=== PATIENT | male | born 1980 | race Caucasian/White ===

== ENCOUNTER 2019-07-18 10:43 | Inpatient (IN) | payer MEDICAID ==
[~2019-07-18] VITALS: Ht 185.4 cm; Wt 123.5 kg
[2019-07-18] MEDS ORDERED: vancomycin/NS 1 GM ADD-VANTAGE 250 ML IV ONE (11:35)
[2019-07-18] MEDS ORDERED: CefTRIAXone 2gm/D5W 50ml 50 ML IV ONE (11:35)
[2019-07-18] MEDS ORDERED: TETanus/Pertussis (Acell)/Diphther VAC/PF (Tdap-Adult) 0.5ml syringe IMVAC ONE (11:40)
[2019-07-18] MEDS ORDERED: iohexol 300mg/ml 100ml inj. ONE (11:48)
[2019-07-18 12:16] LABS: BASOPHILS # (AUTO) 0.1 X10'3 (0-0.2); BASOPHILS % (AUTO) 0.5 % (0-1); EOSINOPHILS # (AUTO) 0.2 X10'3 (0-0.9); EOSINOPHILS % (AUTO) 0.9 % (0-6); HEMATOCRIT 51.2 % (42.0-52.0); HEMOGLOBIN 17.3 g/dl (14.0-17.9); LYMPHOCYTES # (AUTO) 2.7 X10'3 (1.1-4.8); LYMPHOCYTES % (AUTO) 12.6 % (21-51); MEAN CORPUSCULAR HEMOGLOBIN 30.3 PG (27.0-31.0); MEAN CORPUSCULAR HGB CONC 33.8 g/dL (33.0-36.5); MEAN CORPUSCULAR VOLUME 89.4 FL (78-98); MEAN PLATELET VOLUME 8.1 FL (7.4-10.4); MONOCYTES # (AUTO) 1.9 X10'3 (0-0.9); MONOCYTES % (AUTO) 9.2 % (2-12); NEUTROPHILS # (AUTO) 16.3 X10'3 (1.8-7.7); NEUTROPHILS % (AUTO) 76.8 % (42-75); PLATELET COUNT 262 X10'3 (140-440); RED BLOOD COUNT 5.73 X10'6 (4.70-6.10); RED CELL DISTRIBUTION WIDTH 12.7 % (11.5-14.5); WHITE BLOOD COUNT 21.3 X10'3 (4.5-11.0)
--- NOTE | 2019-07-18 12:28 | NUR ---
Pt aware we need a urine sample. Urinal provided at bedside.
[2019-07-18 12:30] LABS: PARTIAL THROMBOPLASTIN TIME 29 SECONDS (22-32)
[2019-07-18 12:37] LABS: ALANINE AMINOTRANSFERASE 24 U/L (12-78); ALBUMIN 3.2 G/DL (3.4-5.0); ALKALINE PHOSPHATASE 81 IU/L (46-116); ANION GAP 4 (8-16); ASPARTATE AMINO TRANSFERASE 16 U/L (10-37); BILIRUBIN,TOTAL 0.8 MG/DL (0.1-1.0); BLOOD UREA NITROGEN 12 MG/DL (7-18); BUN/CREATININE RATIO 15.4 (5.4-32.0); CALCIUM 8.2 MG/DL (8.5-10.1); CHLORIDE 105 MMOL/L (99-107); CREATININE 0.78 MG/DL (0.60-1.10); GLUCOSE 125 MG/DL (70-104); POTASSIUM 3.9 MMOL/L (3.5-5.1); SODIUM 135 MMOL/L (135-145); TOTAL PROTEIN 6.4 G/DL (6.4-8.2); eGFR > 90 ML/MIN
--- NOTE | 2019-07-18 13:25 | NUR ---
Pt sleeping. Respirations unlabored. NAD
[2019-07-18] MEDS ORDERED: NO HOME MEDS (13:55)
[2019-07-18] MEDS ORDERED: metoclopramide 5 mg/ml inj IV PRN (15:20)
[2019-07-18] MEDS ORDERED: mag hydrox/Alum hydrox/simeth 30ml oral suspension PO PRN (15:20)
[2019-07-18] MEDS ORDERED: bisacodyl 10mg suppository rectal RC PRN (15:20)
[2019-07-18] MEDS ORDERED: magnesium hydroxide 30ml (MOM) UD suspension PO PRN (15:20)
[2019-07-18] MEDS ORDERED: potassium Cl 20 mEq SR tablet PO PRN ×2 (15:20)
[2019-07-18] MEDS ORDERED: acetaminophen 650mg rectal suppository RC PRN (15:20)
[2019-07-18] MEDS ORDERED: magnesium 4gm in 100ml NS 100 ML IV PRN (15:20)
[2019-07-18] MEDS ORDERED: HYDROcodone/acetaminophen 5mg/325mg tablet PO PRN (15:20)
[2019-07-18] MEDS ORDERED: morphine 2 MG/ML inj. syringe IV PRN (15:20)
[2019-07-18] MEDS ORDERED: magnesium Cl slow-release 64mg tablet PO PRN (15:20)
[2019-07-18] MEDS ORDERED: acetaminophen 325mg tablet PO PRN ×2 (15:20)
[2019-07-18] MEDS ORDERED: magnesium 2GM in 50ml NS 50 ML IV PRN (15:20)
[2019-07-18] MEDS ORDERED: potassium CL 10mEq/100ml bag 100 ML IV PRN ×2 (15:20)
--- NOTE | 2019-07-18 15:40 | NUR ---
Pt screaming out in pain in right arm, decreased sensation in right arm, fingers cold, skin extremely tight. Spoke with Dr Proctor, he wants us to talk with Dr Mane, orthopedic surgeon.
[2019-07-18 15:52] LABS: HEMOGLOBIN A1C 5.3 % (4.5-6.2)
--- NOTE | 2019-07-18 15:55 | NUR ---
Spoke with Dr Mane concerning change in pt's right arm. Dr Mane states there is no concern for compartment syndrome.
[2019-07-18] MEDS: ondansetron/PF 4mg/2ml inj IV PRN (15:58)
[2019-07-18] MEDS: normal saline 1000ml 1,000 ML IV SCH (15:59)
[2019-07-18] MEDS: piperacillin/tazo 3.375gm/50ml 50 ML IV SCH ×2 (15:59→16:00)
[2019-07-18] MEDS: morphine 2 MG/ML inj. syringe IV PRN ×2 (15:59→20:11)
--- NOTE | 2019-07-18 17:25 | NUR ---
Pt is sleeping. Respirations unlabored. NAD
--- NOTE | 2019-07-18 17:50 | NUR ---
rec'd report from HERI Lewis in ED. Awaiting PT to get to floor.
--- NOTE | 2019-07-18 17:55 | NUR ---
PT ARRIVED ON FLOOR
[2019-07-18 18:04] VITALS: BP 122/77
--- NOTE | 2019-07-18 18:15 | NUR ---
Patient in room ORTHO 4017. I have received report from HERI Clark and had the opportunity to ask questions and assume patient care.
--- NOTE | 2019-07-18 18:34 | NUR ---
Problems reprioritized. Patient report given, questions answered & plan of care reviewed with HERI MARCIAL.
[2019-07-18 18:42] LABS: CLARITY,URINE CLEAR (Clear); COLOR,URINE YELLOW (Yellow); GLUCOSE, URINE NEGATIVE (Neg); KETONES,URINE NEGATIVE (Neg); LEUKOCYTE ESTERASE ,URINE NEGATIVE (Neg); NITRITES, URINE NEGATIVE (Neg); OCCULT BLOOD,URINE NEGATIVE (Neg); PH,URINE 6.5 (4.8-8.0); PROTEIN,URINE TRACE mg/dl (Neg)
[2019-07-18 18:48] LABS: UA COLLECTION TYPE VOIDED
[2019-07-18 18:58] LABS: BACTERIA,URINE NONE SEEN /HPF (Neg); RBC,URINE NONE SEEN /HPF (0-2); SQUAMOUS EPITHELIAL CELL,UR NONE SEEN /LPF (FEW); WBC,URINE 20-30 /HPF (0-4)
[2019-07-18] MEDS: K and/or MAG REPLACEMENT MC SCH (20:00)
[2019-07-18] MEDS: heparin, porcine 5000 units/ml vial SQ SCH (20:10)
[2019-07-18] MEDS: HYDROcodone/acetaminophen 10/325mg tab PO PRN (21:45)
[2019-07-18] MEDS: VANCOMYCIN 1,500MG inj. 1,500 MG in normal saline 500ml IV soln 500 ML IV SCH (21:45)
[2019-07-19] MEDS: piperacillin/tazo 3.375gm/50ml 50 ML IV SCH ×2 (00:49→08:33)
[2019-07-19] MEDS: morphine 2 MG/ML inj. syringe IV PRN ×2 (01:55→19:29)
[2019-07-19 02:00] VITALS: BP 148/86
[2019-07-19] MEDS: VANCOMYCIN 1,500MG inj. 1,500 MG in normal saline 500ml IV soln 500 ML IV SCH ×3 (05:00→21:48)
[2019-07-19] MEDS: normal saline 1000ml 1,000 ML IV SCH ×3 (05:01→21:05)
[2019-07-19] MEDS: HYDROcodone/acetaminophen 10/325mg tab PO PRN ×3 (05:01→21:05)
[2019-07-19 06:00] VITALS: BP 149/94
--- NOTE | 2019-07-19 06:25 | NUR ---
Patient in room ORTHO 4021. I have received report from Penny and had the opportunity to ask questions and assume patient care.
--- NOTE | 2019-07-19 06:30 | NUR ---
Problems reprioritized. Patient report given, questions answered & plan of care reviewed with HERI Mackay.
[2019-07-19] MEDS: K and/or MAG REPLACEMENT MC SCH ×2 (08:00→20:00)
[2019-07-19 08:17] LABS: BASOPHILS # (AUTO) 0.1 X10'3 (0-0.2); EOSINOPHILS # (AUTO) 0.1 X10'3 (0-0.9); LYMPHOCYTES # (AUTO) 2.9 X10'3 (1.1-4.8); MEAN PLATELET VOLUME 9.1 FL (7.4-10.4)
[2019-07-19 08:19] LABS: BASOPHILS % (AUTO) 0.4 % (0-1); EOSINOPHILS % (AUTO) 0.4 % (0-6); HEMATOCRIT 58.2 % (42.0-52.0); MEAN CORPUSCULAR HEMOGLOBIN 30.8 PG (27.0-31.0); MEAN CORPUSCULAR VOLUME 90.4 FL (78-98); MONOCYTES % (AUTO) 7.8 % (2-12); NEUTROPHILS # (AUTO) 21.1 X10'3 (1.8-7.7); NEUTROPHILS % (AUTO) 80.4 % (42-75); PLATELET COUNT 334 X10'3 (140-440); RED BLOOD COUNT 6.44 X10'6 (4.70-6.10); RED CELL DISTRIBUTION WIDTH 13.5 % (11.5-14.5)
[2019-07-19 08:22] LABS: WHITE BLOOD COUNT 26.2 X10'3 (4.5-11.0)
[2019-07-19 08:23] LABS: HEMOGLOBIN 19.8 g/dl (14.0-17.9)
--- NOTE | 2019-07-19 08:25 | NUR ---
Received message re: pt's labs. WBCs 26.2, Hgb 19.8 Addendum: 07/19/19 at 0829 by Codie Rogers RN promotional table spacer PAGER ID: [phone] MESSAGE: Good morning, Codie cole ortho, critical labs for Mr. South in 4021B, WBC 26.2, Hgb 19.8 thank you #[phone]
[2019-07-19 08:32] LABS: ALANINE AMINOTRANSFERASE 18 U/L (12-78); ALBUMIN 2.6 G/DL (3.4-5.0); ALBUMIN/GLOBULIN RATIO 0.7 (1.1-1.5); ALKALINE PHOSPHATASE 69 IU/L (46-116); ANION GAP 9 (8-16); ASPARTATE AMINO TRANSFERASE 20 U/L (10-37); BLOOD UREA NITROGEN 11 MG/DL (7-18); BUN/CREATININE RATIO 10.4 (5.4-32.0); CHLORIDE 105 MMOL/L (99-107); CHOL/HDL RATIO 3.3 (0.00-4.99); CHOLESTEROL 116 MG/DL (0-200); CREATININE 1.06 MG/DL (0.60-1.10); GLUCOSE 135 MG/DL (70-104); HDL CHOLESTEROL 35 MG/DL (35-60); LDL CHOLESTEROL 55 MG/DL (50-100); MAGNESIUM 1.7 MG/DL (1.5-2.4); PHOSPHORUS 2.7 MG/DL (2.3-4.5); POTASSIUM 4.3 MMOL/L (3.5-5.1); SODIUM 136 MMOL/L (135-145); TOTAL CARBON DIOXIDE 21.7 MMOL/L (24-32); TOTAL PROTEIN 6.1 G/DL (6.4-8.2); TRIGLYCERIDES 76 MG/DL (20-135); eGFR 78 ML/MIN
[2019-07-19] MEDS: heparin, porcine 5000 units/ml vial SQ SCH ×2 (08:33→19:29)
[2019-07-19 08:47] LABS: PLATELET ESTIMATE NORMAL; TOTAL CELLS COUNTED 100
[2019-07-19 10:00] VITALS: BP 143/97
[2019-07-19 12:03] LABS: HIV ANTIBODY 1&2 RAPID NON-REACTIVE (Neg)
[2019-07-19 13:13] LABS: CREATINE KINASE 516 U/L (39-308)
[2019-07-19] MEDS: CLINDAMYCIN/D5W 900mg/50ml 50 ML IV SCH ×2 (13:37→23:58)
[2019-07-19] MEDS: piperacillin/tazo 4.5gm/100ml 100 ML IV SCH (17:15)
[2019-07-19 18:00] VITALS: BP 132/90
--- NOTE | 2019-07-19 18:09 | NUR ---
Problems reprioritized. Patient report given, questions answered & plan of care reviewed with
--- NOTE | 2019-07-19 18:20 | NUR ---
Patient in room ORTHO 4010. I have received report from HERI Mackay and had the opportunity to ask questions and assume patient care.
[2019-07-19] MEDS: lactobacillus rhamnosus 10,000 MMU CELLS/CAPSULE PO SCH (19:28)
[2019-07-19] MEDS ORDERED: VANCOMYCIN LEVEL IV ONE (21:30)
[2019-07-19 22:00] VITALS: BP 145/80
--- NOTE | 2019-07-19 22:23 | NUR ---
Critical Vanco trough, 20.5. Sema in pharmacy was notified.
[2019-07-20] VITALS (17 sets, daily range): BP systolic 93–154; BP diastolic 56–99
[2019-07-20] MEDS: piperacillin/tazo 4.5gm/100ml 100 ML IV SCH (00:33)
[2019-07-20] MEDS: morphine 2 MG/ML inj. syringe IV PRN ×2 (00:41→18:55)
--- NOTE | 2019-07-20 06:19 | NUR ---
Problems reprioritized. Patient report given, questions answered & plan of care reviewed with HERI Benson.
[2019-07-20] MEDS ORDERED: VANCOmycin 1250MG/NS 250ml Bag 250 ML IV SCH (06:30)
--- NOTE | 2019-07-20 06:40 | NUR ---
Patient in room ORTHO 4015. I have received report from Penny and had the opportunity to ask questions and assume patient care.
[2019-07-20] MEDS: lactobacillus rhamnosus 10,000 MMU CELLS/CAPSULE PO SCH ×2 (07:22→19:38)
[2019-07-20] MEDS: CLINDAMYCIN/D5W 900mg/50ml 50 ML IV SCH (07:22)
[2019-07-20] MEDS: heparin, porcine 5000 units/ml vial SQ SCH ×2 (07:23→19:37)
[2019-07-20] MEDS: HYDROcodone/acetaminophen 10/325mg tab PO PRN ×3 (07:23→21:38)
[2019-07-20] MEDS: normal saline 1000ml 1,000 ML IV SCH ×2 (07:27→14:16)
[2019-07-20 07:59] LABS: BASOPHILS # (AUTO) 0.2 X10'3 (0-0.2); MEAN PLATELET VOLUME 8.6 FL (7.4-10.4); MONOCYTES # (AUTO) 3.7 X10'3 (0-0.9)
[2019-07-20] MEDS: K and/or MAG REPLACEMENT MC SCH ×2 (08:00→19:38)
[2019-07-20 08:02] LABS: BASOPHILS % (AUTO) 0.7 % (0-1); EOSINOPHILS # (AUTO) 0.1 X10'3 (0-0.9); EOSINOPHILS % (AUTO) 0.2 % (0-6); HEMATOCRIT 59.5 % (42.0-52.0); LYMPHOCYTES % (AUTO) 10.1 % (21-51); MEAN CORPUSCULAR HEMOGLOBIN 30.3 PG (27.0-31.0); MEAN CORPUSCULAR HGB CONC 33.2 g/dL (33.0-36.5); MEAN CORPUSCULAR VOLUME 91.5 FL (78-98); MONOCYTES % (AUTO) 12.5 % (2-12); NEUTROPHILS # (AUTO) 22.5 X10'3 (1.8-7.7); NEUTROPHILS % (AUTO) 76.5 % (42-75); PLATELET COUNT 331 X10'3 (140-440); RED CELL DISTRIBUTION WIDTH 13.3 % (11.5-14.5)
[2019-07-20 08:22] LABS: ALANINE AMINOTRANSFERASE 24 U/L (12-78); ALBUMIN 1.9 G/DL (3.4-5.0); ALBUMIN/GLOBULIN RATIO 0.6 (1.1-1.5); ALKALINE PHOSPHATASE 65 IU/L (46-116); ANION GAP 10 (8-16); ASPARTATE AMINO TRANSFERASE 98 U/L (10-37); BILIRUBIN,TOTAL 0.7 MG/DL (0.1-1.0); BLOOD UREA NITROGEN 21 MG/DL (7-18); BUN/CREATININE RATIO 5.6 (5.4-32.0); CALCIUM 7.5 MG/DL (8.5-10.1); CHLORIDE 100 MMOL/L (99-107); CREATININE 3.76 MG/DL (0.60-1.10); GLUCOSE 126 MG/DL (70-104); MAGNESIUM 1.9 MG/DL (1.5-2.4); PHOSPHORUS 4.7 MG/DL (2.3-4.5); POTASSIUM 5.2 MMOL/L (3.5-5.1); SODIUM 133 MMOL/L (135-145); TOTAL CARBON DIOXIDE 22.8 MMOL/L (24-32); TOTAL PROTEIN 5.1 G/DL (6.4-8.2); eGFR 18 ML/MIN
[2019-07-20 08:42] LABS: WHITE BLOOD COUNT 29.5 X10'3 (4.5-11.0)
[2019-07-20 08:43] LABS: HEMOGLOBIN 19.7 g/dl (14.0-17.9)
[2019-07-20 08:50] LABS: PLATELET ESTIMATE NORMAL; TOTAL CELLS COUNTED 100
--- NOTE | 2019-07-20 09:48 | NUR ---
Notified Provider Patti Mane about patients positive nasal MRSA swab.
--- NOTE | 2019-07-20 09:55 | NUR ---
Problems reprioritized. Patient report given, questions answered & plan of care reviewed with Mauro in recovery.
[2019-07-20] MEDS ORDERED: CLINDAmcin 900mg/NS 50ml IVPB 50 ML IV SCH (10:33)
[2019-07-20] MEDS ORDERED: sevoflurane 250ml liquid IH ONE (11:54)
[2019-07-20] MEDS ORDERED: propofol inj 20 ML IV ONE (11:57)
[2019-07-20] MEDS ORDERED: fentaNYL/PF 50MCG/1 ML 2ML syringe ONE ×2 (11:57→12:16)
[2019-07-20] MEDS ORDERED: vancomycin 1,000mg inj ONE (12:15)
[2019-07-20] MEDS ORDERED: BUPIVAcaine/PF 2.5 mg/ml (0.25%) 30ml vial ONE (12:15)
--- NOTE | 2019-07-20 12:59 | NUR ---
Received from OR via ORTHO BED WITH NHMATTI , accompanied by Anesthesiologist BRENT and report given by Anesthesiolgist. PATIENT WITH 20G PIV IN LEFT UE RUNNING LR AT 100. RIGHT UE WITH WOUND VAC APPLIED TO ENTIRETY OF RIGHT UE. SHOUDLER TO WRIST. SUCTION MAINTAINED. SCDS DONNED. VSS. Addendum: 07/20/19 at 1314 by Sandoval Dimas RN, RN Amended: Links added.
[2019-07-20 13:11] LABS: HBSAG SCREEN Negative (Negative); HEP A AB, IGM Negative (Negative); HEP B CORE AB, IGM Negative (Negative); HEPATITIS C ANTIBODY <0.1 s/co ratio (0.0-0.9)
[2019-07-20] MEDS ORDERED: ringers solution, lacted 1,000 ML IV SCH (13:16)
[2019-07-20] MEDS ORDERED: meperidine/PF 25mg/ml syringe IV PRN ×3 (13:20)
[2019-07-20] MEDS ORDERED: proCHLORperazine 10 MG/2 ml inj IV PRN (13:20)
[2019-07-20] MEDS ORDERED: ondansetron/PF 4mg/2ml inj IV PRN (13:20)
[2019-07-20] MEDS ORDERED: morphine 4 MG/ML inj SYRINge IV PRN (13:20)
[2019-07-20] MEDS ORDERED: morphine 2 MG/ML inj. syringe IV PRN (13:20)
--- NOTE | 2019-07-20 13:54 | NUR ---
Patient in room ORTHO 4021. I have received report from CALISTA from [facility] and had the opportunity to ask questions and assume patient care.
--- NOTE | 2019-07-20 14:00 | NUR ---
PATIENT TAKEN TO WITH ALL BELONGINGS AND HOOKED UP TO MONITORS IN ROOM AND REPORT GIVEN TO RN WHO HAS TAKEN OVER PATIENT CARE.ONE TONGUE RING IN LABELED CONTAINER TAPED UPON BED FRAME. HERI CASTELLANOS ACCEPTED CARE AND IS PRESENT TO HELP SET UP. CALL LIGHT PRESENT. BED LOW AND 2 RAILS UP Addendum: 07/20/19 at 1416 by Sandoval Cesar - HERI LIRIANO Amended: Links added.
[2019-07-20] MEDS: clindamycin-Cleocin 900mg/D5W 50 ML IV SCH ×2 (15:20→23:34)
[2019-07-20] MEDS: piperacillin/tazo 3.375gm/50ml 50 ML IV SCH (16:08)
--- NOTE | 2019-07-20 18:14 | NUR ---
Problems reprioritized. Patient report given, questions answered & plan of care reviewed with Trang.
--- NOTE | 2019-07-20 18:30 | NUR ---
Patient in room ORTHO 4021. I have received report from HERI Benson and had the opportunity to ask questions and assume patient care.
[2019-07-21] VITALS (15 sets, daily range): BP systolic 119–164; BP diastolic 0–87
[2019-07-21] MEDS: piperacillin/tazo 3.375gm/50ml 50 ML IV SCH ×4 (00:20→16:00)
[2019-07-21] MEDS: morphine 2 MG/ML inj. syringe IV PRN ×3 (02:43→20:56)
[2019-07-21] MEDS: normal saline 1000ml 1,000 ML IV SCH ×3 (03:17→20:55)
[2019-07-21] MEDS: HYDROcodone/acetaminophen 10/325mg tab PO PRN ×2 (05:20→09:11)
[2019-07-21] MEDS ORDERED: VANCOMYCIN LEVEL IV ONE (05:30)
--- NOTE | 2019-07-21 06:28 | NUR ---
Problems reprioritized. Patient report given, questions answered & plan of care reviewed with HERI Cam.
[2019-07-21 07:28] LABS: BASOPHILS # (AUTO) 0.1 X10'3 (0-0.2); BASOPHILS % (AUTO) 0.2 % (0-1); EOSINOPHILS % (AUTO) 0 % (0-6); HEMATOCRIT 57.1 % (42.0-52.0); LYMPHOCYTES # (AUTO) 2.5 X10'3 (1.1-4.8); LYMPHOCYTES % (AUTO) 9.2 % (21-51); MEAN CORPUSCULAR HEMOGLOBIN 30.2 PG (27.0-31.0); MEAN CORPUSCULAR HGB CONC 33.4 g/dL (33.0-36.5); MEAN CORPUSCULAR VOLUME 90.2 FL (78-98); MEAN PLATELET VOLUME 8.9 FL (7.4-10.4); MONOCYTES # (AUTO) 3.2 X10'3 (0-0.9); MONOCYTES % (AUTO) 11.5 % (2-12); NEUTROPHILS # (AUTO) 21.8 X10'3 (1.8-7.7); NEUTROPHILS % (AUTO) 79.1 % (42-75); PLATELET COUNT 421 X10'3 (140-440); RED BLOOD COUNT 6.34 X10'6 (4.70-6.10); RED CELL DISTRIBUTION WIDTH 13.3 % (11.5-14.5)
[2019-07-21 07:30] LABS: HEMOGLOBIN 19.1 g/dl (14.0-17.9); WHITE BLOOD COUNT 27.6 X10'3 (4.5-11.0)
[2019-07-21 07:47] LABS: ALANINE AMINOTRANSFERASE 218 U/L (12-78); ALBUMIN 1.7 G/DL (3.4-5.0); ALBUMIN/GLOBULIN RATIO 0.5 (1.1-1.5); ALKALINE PHOSPHATASE 63 IU/L (46-116); ANION GAP 13 (8-16); ASPARTATE AMINO TRANSFERASE 345 U/L (10-37); BILIRUBIN,TOTAL 0.5 MG/DL (0.1-1.0); BLOOD UREA NITROGEN 36 MG/DL (7-18); BUN/CREATININE RATIO 6.6 (5.4-32.0); CALCIUM 7.8 MG/DL (8.5-10.1); CHLORIDE 97 MMOL/L (99-107); CREATININE 5.44 MG/DL (0.60-1.10); GLUCOSE 116 MG/DL (70-104); MAGNESIUM 2.1 MG/DL (1.5-2.4); PHOSPHORUS 7.8 MG/DL (2.3-4.5); POTASSIUM 5.4 MMOL/L (3.5-5.1); SODIUM 130 MMOL/L (135-145); TOTAL CARBON DIOXIDE 20.4 MMOL/L (24-32); TOTAL PROTEIN 5.1 G/DL (6.4-8.2); eGFR 12 ML/MIN
[2019-07-21 07:52] LABS: VANCOMYCIN,TROUGH 36.9 UG/ML (6.0-14.0)
[2019-07-21] MEDS: K and/or MAG REPLACEMENT MC SCH ×2 (08:00→20:00)
[2019-07-21] MEDS: heparin, porcine 5000 units/ml vial SQ SCH ×2 (08:00→20:54)
--- NOTE | 2019-07-21 08:00 | NUR ---
pt is diaphoretic and somewhat lethargic. Answers questions appropriately then drifts back off to sleep Addendum: 07/21/19 at 1116 by Patt Cuellar RN Amended: Links added.
[2019-07-21 08:13] LABS: TOTAL CELLS COUNTED 100
[2019-07-21 08:14] LABS: PLATELET ESTIMATE NORMAL; TOXIC GRANULATION 2+; TOXIC VACUOLATION FEW
[2019-07-21 08:15] LABS: BURR CELLS 1+
--- NOTE | 2019-07-21 08:18 | NUR ---
PAGER ID: [phone] MESSAGE: Dorina anna [phone] re Dipak South in 4021b- received critical wbc 27.1, hematocrit 57.1, vanco trough 36.9. kidney functions significantly worsened. Dr Yvan Mane also aware.
[2019-07-21] MEDS: lactobacillus rhamnosus 10,000 MMU CELLS/CAPSULE PO SCH ×2 (09:11→20:54)
[2019-07-21] MEDS: clindamycin-Cleocin 900mg/D5W 50 ML IV SCH ×2 (09:11→16:00)
[2019-07-21] MEDS ORDERED: famotidine/PF 10 mg/ml inj IV ONE (09:40)
--- NOTE | 2019-07-21 10:01 | NUR ---
PAGER ID: [phone] MESSAGE: Dorina Arriaga lorin Dipak South in [id number]. Please call me I have concerns about this pt condition Addendum: 07/21/19 at 1430 by Patt Cuellar RN Hospitalist did return my call shortly after I paged for the second time, and we discussed my concerns about this patient- mottled, dusky extremities with delayed cap refill, profuse diaphoresis, critical labs (see labs) and significant decrease in kidney function. I advised him that I had spoken with Jan Mane who wanted to take him back to the OR, although I did not have a chance to discuss my concern about the other s/s and labs since Dr Yvan Mane had abruptly ended the phone call before I had the chance, saying that I needed to speak to the hospitalist about those issues. I also reached out to the OR charge nurse Belinda LIRIANO to discuss these concerns with the anesthesiologist. Hospitalist did agree at that time that this was an emergent surgery and he was very sick. Later in the hallway he told me that the patient was doing better than yesterday and another physician said he was better too and it was "crazy" to think he was not looking better. He did mention that Dr Zhu would be seeing him for his decreased kidney function and did order kayexelate and echo. The pt was evaluated and then quickly transferred to ICU
[2019-07-21] MEDS ORDERED: sodium polystyrene sulfonate 15gm/60ml oral suspension PO ONE (10:05)
--- NOTE | 2019-07-21 11:52 | NUR ---
PAGER ID: [phone] MESSAGE: Karl [phone] [id number] [id number] Mr Dipak South- Dr Zhu wants to admit him to ICU. Thanks
[2019-07-21 12:25] LABS: BASOPHILS # (AUTO) 0.2 X10'3 (0-0.2); BASOPHILS % (AUTO) 0.5 % (0-1); EOSINOPHILS % (AUTO) 0 % (0-6); LYMPHOCYTES # (AUTO) 2.8 X10'3 (1.1-4.8); LYMPHOCYTES % (AUTO) 8.6 % (21-51); MEAN CORPUSCULAR HEMOGLOBIN 30.6 PG (27.0-31.0); MEAN CORPUSCULAR HGB CONC 33.1 g/dL (33.0-36.5); MEAN CORPUSCULAR VOLUME 92.5 FL (78-98); MEAN PLATELET VOLUME 8.2 FL (7.4-10.4); MONOCYTES # (AUTO) 3.4 X10'3 (0-0.9); MONOCYTES % (AUTO) 10.3 % (2-12); NEUTROPHILS # (AUTO) 26.3 X10'3 (1.8-7.7); NEUTROPHILS % (AUTO) 80.6 % (42-75); PLATELET COUNT 431 X10'3 (140-440); RED BLOOD COUNT 6.51 X10'6 (4.70-6.10); RED CELL DISTRIBUTION WIDTH 13.6 % (11.5-14.5)
[2019-07-21 12:34] LABS: HEMATOCRIT 60.2 % (42.0-52.0); HEMOGLOBIN 19.9 g/dl (14.0-17.9); WHITE BLOOD COUNT 32.6 X10'3 (4.5-11.0)
--- NOTE | 2019-07-21 12:36 | NUR ---
Pt brought down to ICU from Ortho for sepsis signs. Pt cool and clammy with diaphoresis. Feet mottled, unable to find pulse even with doppler. HR SR tachy at low 100's, BP 116/82. Critical values received with WBC 32.6, Hgb 19.9, HCT 60.2. Very weak radial pulse palpable. PIV placed left forearm, unable to draw blood for labs. Addendum: 07/21/19 at 1258 by Yamil Tanner RN Dr. Zhu informed of of cold extremities and no palpable pulses as well as critical values.
[2019-07-21] MEDS: ondansetron/PF 4mg/2ml inj IV PRN (14:38)
[2019-07-21 15:11] LABS: CLARITY,URINE SLIGHTLY CLOUDY (Clear); COLOR,URINE YELLOW (Yellow); GLUCOSE, URINE NEGATIVE (Neg); KETONES,URINE NEGATIVE (Neg); LEUKOCYTE ESTERASE ,URINE NEGATIVE (Neg); NITRITES, URINE NEGATIVE (Neg); OCCULT BLOOD,URINE LARGE (Neg); PROTEIN,URINE TRACE mg/dl (Neg); UROBILINOGEN,URINE 0.2 E.U/dL (0.2-1.0)
[2019-07-21 15:12] LABS: UA COLLECTION TYPE FOLEY CATH
[2019-07-21] MEDS ORDERED: normal saline 1000ml 1,000 ML IV ONE (15:20)
[2019-07-21 15:26] LABS: BACTERIA,URINE NONE SEEN /HPF (Neg); MUCUS STRANDS NONE SEEN /LPF (Neg); RBC,URINE 0-2 /HPF (0-2); SQUAMOUS EPITHELIAL CELL,UR FEW /LPF (FEW); WBC,URINE 0-4 /HPF (0-4)
[2019-07-21] MEDS ORDERED: fentaNYL/PF 50MCG/1 ML 2ML syringe ONE ×2 (15:34→17:27)
[2019-07-21] MEDS ORDERED: midazolam 2 mg/2 ml injection ONE (15:35)
[2019-07-21] MEDS ORDERED: sevoflurane 250ml liquid IH ONE (15:36)
[2019-07-21] MEDS ORDERED: ketamine 50 mg/ml 10ml vial ONE (15:38)
[2019-07-21] MEDS ORDERED: LIDOcaine 2% (20mg/ml) 5ml vial ONE (15:45)
[2019-07-21] MEDS ORDERED: rocuronium 10mg/ml inj IV ONE (15:45)
[2019-07-21 15:58] LABS: UA EOSINOPHILS NO EOS /HPF
[2019-07-21 16:37] LABS: ALANINE AMINOTRANSFERASE 169 U/L (12-78); ALBUMIN 1.5 G/DL (3.4-5.0); ALBUMIN/GLOBULIN RATIO 0.5 (1.1-1.5); ALKALINE PHOSPHATASE 55 IU/L (46-116); ANION GAP 12 (8-16); ASPARTATE AMINO TRANSFERASE 263 U/L (10-37); BILIRUBIN,TOTAL 0.4 MG/DL (0.1-1.0); BLOOD UREA NITROGEN 41 MG/DL (7-18); BUN/CREATININE RATIO 7.4 (5.4-32.0); CALCIUM 7.4 MG/DL (8.5-10.1); CHLORIDE 100 MMOL/L (99-107); CREATININE 5.52 MG/DL (0.60-1.10); GLUCOSE 131 MG/DL (70-104); POTASSIUM 5.2 MMOL/L (3.5-5.1); SODIUM 132 MMOL/L (135-145); TOTAL CARBON DIOXIDE 19.7 MMOL/L (24-32); TOTAL PROTEIN 4.5 G/DL (6.4-8.2); eGFR 12 ML/MIN
[2019-07-21 16:48] LABS: CREATINE KINASE 6165 U/L (39-308)
[2019-07-21] MEDS ORDERED: phenylephrine 10mg/ml inj. ONE (18:15)
[2019-07-21] MEDS ORDERED: glycopyrrolate 0.2mg/ml inj ONE (18:15)
[2019-07-21] MEDS ORDERED: neostigmine methylsulfate 1 MG/ML 10ml vial ONE (18:15)
--- NOTE | 2019-07-21 18:32 | NUR ---
Problems reprioritized. Patient report given, questions answered & plan of care reviewed with Jessa LIRIANO. Pt just back from surgery at shift change.
[2019-07-21 19:14] LABS: BASOPHILS # (AUTO) 0.1 X10'3 (0-0.2); BASOPHILS % (AUTO) 0.4 % (0-1); EOSINOPHILS % (AUTO) 0 % (0-6); HEMATOCRIT 41.4 % (42.0-52.0); HEMOGLOBIN 13.8 g/dl (14.0-17.9); LYMPHOCYTES # (AUTO) 1.7 X10'3 (1.1-4.8); LYMPHOCYTES % (AUTO) 6.8 % (21-51); MEAN CORPUSCULAR HEMOGLOBIN 30.3 PG (27.0-31.0); MEAN CORPUSCULAR HGB CONC 33.2 g/dL (33.0-36.5); MEAN CORPUSCULAR VOLUME 91.3 FL (78-98); MEAN PLATELET VOLUME 8.4 FL (7.4-10.4); MONOCYTES # (AUTO) 2.5 X10'3 (0-0.9); MONOCYTES % (AUTO) 9.9 % (2-12); NEUTROPHILS # (AUTO) 21.1 X10'3 (1.8-7.7); NEUTROPHILS % (AUTO) 82.9 % (42-75); PLATELET COUNT 362 X10'3 (140-440); RED BLOOD COUNT 4.54 X10'6 (4.70-6.10); RED CELL DISTRIBUTION WIDTH 13.4 % (11.5-14.5)
[2019-07-21 19:18] LABS: WHITE BLOOD COUNT 25.4 X10'3 (4.5-11.0)
[2019-07-21 19:21] LABS: ALANINE AMINOTRANSFERASE 106 U/L (12-78); ALBUMIN 1.8 G/DL (3.4-5.0); ALBUMIN/GLOBULIN RATIO 0.9 (1.1-1.5); ALKALINE PHOSPHATASE 39 IU/L (46-116); ANION GAP 10 (8-16); ASPARTATE AMINO TRANSFERASE 174 U/L (10-37); BILIRUBIN,TOTAL 0.5 MG/DL (0.1-1.0); BLOOD UREA NITROGEN 42 MG/DL (7-18); CALCIUM 6.5 MG/DL (8.5-10.1); CHLORIDE 105 MMOL/L (99-107); CREATININE 5.25 MG/DL (0.60-1.10); GLUCOSE 127 MG/DL (70-104); POTASSIUM 5.4 MMOL/L (3.5-5.1); SODIUM 133 MMOL/L (135-145); TOTAL CARBON DIOXIDE 17.9 MMOL/L (24-32); TOTAL PROTEIN 3.8 G/DL (6.4-8.2); eGFR 12 ML/MIN
--- NOTE | 2019-07-21 20:08 | NUR ---
STILL SLEEPY , FOLLOW COMMANDS , CLAIMED OF PAIN BUT BACK TO SLEEP AFTER
--- NOTE | 2019-07-21 21:04 | NUR ---
ABLE TO DRINK FLUIDS WITHOUT DIFFICULTY
[2019-07-22] VITALS (22 sets, daily range): BP systolic 108–151; BP diastolic 42–91
[2019-07-22] MEDS: piperacillin/tazo 3.375gm/50ml 50 ML IV SCH ×3 (00:15→15:19)
[2019-07-22] MEDS: clindamycin-Cleocin 900mg/D5W 50 ML IV SCH ×3 (00:42→15:19)
[2019-07-22 03:09] LABS: BASOPHILS # (AUTO) 0.1 X10'3 (0-0.2); BASOPHILS % (AUTO) 0.4 % (0-1); EOSINOPHILS % (AUTO) 0 % (0-6); HEMATOCRIT 38.1 % (42.0-52.0); HEMOGLOBIN 12.8 g/dl (14.0-17.9); LYMPHOCYTES % (AUTO) 8.9 % (21-51); MEAN CORPUSCULAR HEMOGLOBIN 30.3 PG (27.0-31.0); MEAN CORPUSCULAR HGB CONC 33.6 g/dL (33.0-36.5); MEAN CORPUSCULAR VOLUME 90.2 FL (78-98); MEAN PLATELET VOLUME 8.8 FL (7.4-10.4); MONOCYTES # (AUTO) 2.6 X10'3 (0-0.9); MONOCYTES % (AUTO) 11.7 % (2-12); NEUTROPHILS # (AUTO) 17.4 X10'3 (1.8-7.7); PLATELET COUNT 343 X10'3 (140-440); RED BLOOD COUNT 4.22 X10'6 (4.70-6.10); WHITE BLOOD COUNT 22.1 X10'3 (4.5-11.0)
[2019-07-22 03:21] LABS: ALANINE AMINOTRANSFERASE 98 U/L (12-78); ALBUMIN 1.7 G/DL (3.4-5.0); ALBUMIN/GLOBULIN RATIO 0.7 (1.1-1.5); ALKALINE PHOSPHATASE 42 IU/L (46-116); ANION GAP 12 (8-16); ASPARTATE AMINO TRANSFERASE 136 U/L (10-37); BILIRUBIN,TOTAL 0.5 MG/DL (0.1-1.0); BLOOD UREA NITROGEN 50 MG/DL (7-18); BUN/CREATININE RATIO 8.8 (5.4-32.0); CALCIUM 6.7 MG/DL (8.5-10.1); CHLORIDE 100 MMOL/L (99-107); CREATININE 5.69 MG/DL (0.60-1.10); GLUCOSE 129 MG/DL (70-104); MAGNESIUM 2.1 MG/DL (1.5-2.4); PHOSPHORUS 7.7 MG/DL (2.3-4.5); POTASSIUM 5.4 MMOL/L (3.5-5.1); SODIUM 130 MMOL/L (135-145); TOTAL CARBON DIOXIDE 18.4 MMOL/L (24-32); TOTAL PROTEIN 4.2 G/DL (6.4-8.2); eGFR 11 ML/MIN
[2019-07-22 03:57] LABS: ANISOCYTOSIS 1+; PLATELET ESTIMATE NORMAL; TOTAL CELLS COUNTED 100
[2019-07-22] MEDS: morphine 2 MG/ML inj. syringe IV PRN ×5 (05:48→22:27)
--- NOTE | 2019-07-22 06:32 | NUR ---
Problems reprioritized. Patient report given, questions answered & plan of care reviewed with PANCHITO LIRIANO.
--- NOTE | 2019-07-22 06:47 | NUR ---
Patient in room ICU 2043. I have received report from HERI Germain and had the opportunity to ask questions and assume patient care.
[2019-07-22] MEDS: K and/or MAG REPLACEMENT MC SCH ×2 (08:00→19:26)
[2019-07-22] MEDS: lactobacillus rhamnosus 10,000 MMU CELLS/CAPSULE PO SCH ×2 (08:01→19:27)
[2019-07-22] MEDS: heparin, porcine 5000 units/ml vial SQ SCH ×2 (08:15→19:27)
[2019-07-22] MEDS: ondansetron/PF 4mg/2ml inj IV PRN (09:49)
[2019-07-22] MEDS: HYDROcodone/acetaminophen 10/325mg tab PO PRN ×2 (09:55→19:50)
[2019-07-22] MEDS: normal saline 1000ml 1,000 ML IV SCH ×3 (09:56→17:14)
--- NOTE | 2019-07-22 18:10 | NUR ---
Patient in room ICU 2043. I have received report from Eleni LIRIANO and had the opportunity to ask questions and assume patient care.
--- NOTE | 2019-07-22 18:28 | NUR ---
Problems reprioritized. Patient report given, questions answered & plan of care reviewed with HERI Velasquez.
--- NOTE | 2019-07-22 21:54 | NUR ---
BROTHER SUNI WANTS TO BE CONTACTED WITH ANY CHANGES [phone]
[2019-07-23] VITALS (24 sets, daily range): BP systolic 106–150; BP diastolic 59–87
[2019-07-23] MEDS: clindamycin-Cleocin 900mg/D5W 50 ML IV SCH ×3 (00:07→15:45)
[2019-07-23] MEDS: normal saline 1000ml 1,000 ML IV SCH ×2 (00:07→12:49)
[2019-07-23] MEDS: piperacillin/tazo 3.375gm/50ml 50 ML IV SCH ×3 (00:07→15:46)
[2019-07-23] MEDS: HYDROcodone/acetaminophen 10/325mg tab PO PRN ×4 (00:58→19:48)
[2019-07-23] MEDS: morphine 2 MG/ML inj. syringe IV PRN ×4 (03:18→22:15)
[2019-07-23 03:19] LABS: BASOPHILS % (AUTO) 0.2 % (0-1); EOSINOPHILS % (AUTO) 0.2 % (0-6); HEMATOCRIT 29.7 % (42.0-52.0); LYMPHOCYTES # (AUTO) 1.9 X10'3 (1.1-4.8); LYMPHOCYTES % (AUTO) 12.7 % (21-51); MEAN CORPUSCULAR HEMOGLOBIN 30.2 PG (27.0-31.0); MEAN CORPUSCULAR HGB CONC 33.8 g/dL (33.0-36.5); MEAN CORPUSCULAR VOLUME 89.2 FL (78-98); MEAN PLATELET VOLUME 7.4 FL (7.4-10.4); MONOCYTES # (AUTO) 1.9 X10'3 (0-0.9); MONOCYTES % (AUTO) 12.4 % (2-12); NEUTROPHILS # (AUTO) 11.3 X10'3 (1.8-7.7); NEUTROPHILS % (AUTO) 74.5 % (42-75); PLATELET COUNT 281 X10'3 (140-440); RED BLOOD COUNT 3.32 X10'6 (4.70-6.10); RED CELL DISTRIBUTION WIDTH 13.2 % (11.5-14.5); WHITE BLOOD COUNT 15.2 X10'3 (4.5-11.0)
[2019-07-23 03:35] LABS: ALANINE AMINOTRANSFERASE 54 U/L (12-78); ALBUMIN 1.6 G/DL (3.4-5.0); ALBUMIN/GLOBULIN RATIO 0.7 (1.1-1.5); ALKALINE PHOSPHATASE 44 IU/L (46-116); ANION GAP 9 (8-16); ASPARTATE AMINO TRANSFERASE 76 U/L (10-37); BILIRUBIN,TOTAL 0.3 MG/DL (0.1-1.0); BLOOD UREA NITROGEN 57 MG/DL (7-18); BUN/CREATININE RATIO 11.1 (5.4-32.0); CALCIUM 6.7 MG/DL (8.5-10.1); CHLORIDE 100 MMOL/L (99-107); CREATININE 5.14 MG/DL (0.60-1.10); GLUCOSE 108 MG/DL (70-104); MAGNESIUM 2.4 MG/DL (1.5-2.4); PHOSPHORUS 6.8 MG/DL (2.3-4.5); POTASSIUM 4.3 MMOL/L (3.5-5.1); SODIUM 129 MMOL/L (135-145); TOTAL CARBON DIOXIDE 20.3 MMOL/L (24-32); VANCOMYCIN,RANDOM 18.7 UG/ML; eGFR 13 ML/MIN
--- NOTE | 2019-07-23 06:52 | NUR ---
Patient in room ICU 2043. I have received report from Eva LIRIANO and had the opportunity to ask questions and assume patient care. Patient resting in bed, fluids running per order, wound vac on and seems to be functioning, offers no complaints, will continue to monitor.
[2019-07-23] MEDS: K and/or MAG REPLACEMENT MC SCH ×2 (07:34→20:00)
[2019-07-23] MEDS: lactobacillus rhamnosus 10,000 MMU CELLS/CAPSULE PO SCH ×2 (07:34→19:48)
[2019-07-23] MEDS: heparin, porcine 5000 units/ml vial SQ SCH ×2 (07:35→19:49)
--- NOTE | 2019-07-23 11:29 | NUR ---
Patient resting in bed at this time, foster care provided, new leg securement device added to stat lock for foster, will continue to monitor.
--- NOTE | 2019-07-23 11:58 | NUR ---
Patient has not worked with PT since 07/18, has been transferred to a higher level of care, in addition to having a R upper limb amputation, will order PT eval and treat per protocol.
--- NOTE | 2019-07-23 12:48 | NUR ---
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 Not yet needing HD per MD. PO 50% avg regular diet. Pt seen by RD for written/verbal high protein ed w/ RD contact information provided. Pt is agreeable to strawberry Ziyad shake BIDBD and ensure pudding at lunches for wound healing needs; dietary notified. Pt reports appetite lower than normal; noted to have poor dentition though pt declines texture modifications at this time. LBM 07/15; pt had 2 liquid BM's today per RN though pt reports no BM since admit during RD visit. Pt declines feeling constipation at this time. Would likely benefit from routine bowel care and opioid antagonist post-op on opiates. Will need return to OR for stump closure per MD. Will continue to monitor for additional protein/bowel care needs post-op. Rec: 1. continue regular diet; encourage PO 2. strawberry Ziyad shake BIDBD; ensure pudding at lunches for wound 3. MVI for wound healing needs 4. routine bowel care; consider opioid antagonist on opiates post-op if MD agreeable 5. wt per rx Addendum: 07/23/19 at [address] Amended: Links added.
--- NOTE | 2019-07-23 14:11 | NUR ---
Patient requested for the RN to screen all phone calls and let family know he would like to sleep and doesn't want to speak on the phone at this time.
--- NOTE | 2019-07-23 18:15 | NUR ---
Patient in room ICU 2043. I have received report from Orin LIRIANO and had the opportunity to ask questions and assume patient care.
--- NOTE | 2019-07-23 18:18 | NUR ---
Problems reprioritized. Patient report given, questions answered & plan of care reviewed with Hetal LIRIANO. Patient stable at transfer of care.
--- NOTE | 2019-07-23 23:45 | NUR ---
patient transferred to room 4012B with all belongings. Report given to Cherri LIRIANO
[2019-07-24] MEDS: HYDROcodone/acetaminophen 10/325mg tab PO PRN ×3 (00:18→22:44)
[2019-07-24] MEDS: clindamycin-Cleocin 900mg/D5W 50 ML IV SCH ×3 (00:20→15:30)
[2019-07-24] MEDS: piperacillin/tazo 3.375gm/50ml 50 ML IV SCH ×3 (00:39→17:23)
[2019-07-24] MEDS: normal saline 1000ml 1,000 ML IV SCH ×2 (02:09→11:34)
[2019-07-24] MEDS: morphine 2 MG/ML inj. syringe IV PRN ×4 (03:19→19:26)
[2019-07-24 04:00] VITALS: BP 132/87
[2019-07-24 06:44] LABS: BASOPHILS % (AUTO) 0.3 % (0-1); EOSINOPHILS # (AUTO) 0.2 X10'3 (0-0.9); EOSINOPHILS % (AUTO) 1.2 % (0-6); HEMATOCRIT 31.4 % (42.0-52.0); HEMOGLOBIN 10.5 g/dl (14.0-17.9); LYMPHOCYTES # (AUTO) 1.9 X10'3 (1.1-4.8); LYMPHOCYTES % (AUTO) 12.7 % (21-51); MEAN CORPUSCULAR HGB CONC 33.5 g/dL (33.0-36.5); MEAN CORPUSCULAR VOLUME 89.7 FL (78-98); MEAN PLATELET VOLUME 7.3 FL (7.4-10.4); MONOCYTES # (AUTO) 2.1 X10'3 (0-0.9); MONOCYTES % (AUTO) 13.9 % (2-12); NEUTROPHILS # (AUTO) 10.7 X10'3 (1.8-7.7); NEUTROPHILS % (AUTO) 71.9 % (42-75); PLATELET COUNT 301 X10'3 (140-440); RED CELL DISTRIBUTION WIDTH 13.1 % (11.5-14.5); WHITE BLOOD COUNT 14.8 X10'3 (4.5-11.0)
[2019-07-24 06:57] LABS: ALANINE AMINOTRANSFERASE 37 U/L (12-78); ALBUMIN 1.6 G/DL (3.4-5.0); ALBUMIN/GLOBULIN RATIO 0.6 (1.1-1.5); ALKALINE PHOSPHATASE 71 IU/L (46-116); ANION GAP 11 (8-16); ASPARTATE AMINO TRANSFERASE 58 U/L (10-37); BILIRUBIN,TOTAL 0.3 MG/DL (0.1-1.0); BLOOD UREA NITROGEN 57 MG/DL (7-18); CALCIUM 7.1 MG/DL (8.5-10.1); CHLORIDE 99 MMOL/L (99-107); CREATININE 5.17 MG/DL (0.60-1.10); GLUCOSE 101 MG/DL (70-104); MAGNESIUM 2.5 MG/DL (1.5-2.4); PHOSPHORUS 6.9 MG/DL (2.3-4.5); POTASSIUM 4.4 MMOL/L (3.5-5.1); SODIUM 128 MMOL/L (135-145); TOTAL CARBON DIOXIDE 18.1 MMOL/L (24-32); TOTAL PROTEIN 4.5 G/DL (6.4-8.2); VANCOMYCIN,RANDOM 13.4 UG/ML; eGFR 12 ML/MIN
[2019-07-24 08:45] VITALS: BP 115/75
[2019-07-24] MEDS: lactobacillus rhamnosus 10,000 MMU CELLS/CAPSULE PO SCH (09:01)
[2019-07-24] MEDS: heparin, porcine 5000 units/ml vial SQ SCH ×2 (09:13→19:30)
[2019-07-24 11:00] VITALS: BP 114/69
--- NOTE | 2019-07-24 11:02 | NUR ---
left eye non responsive to light, size 3. right eye response, size 2 Addendum: 07/24/19 at 1119 by Primo VELAZQUEZ Amended: Links added.
--- NOTE | 2019-07-24 14:58 | NUR ---
Patients brother Jersey called for update. (Patient gave permission) Encouraged with patient being out of ICU. Advised of plan to take patient to OR tomorrow to close the wound. Jersey requested someone please call him with update tomorrow after surgery. Number in SBAR.
[2019-07-24] MEDS ORDERED: furosemide 40mg/4ml inj IV ONE (15:40)
[2019-07-24 18:00] VITALS: BP 156/95
[2019-07-24] MEDS: K and/or MAG REPLACEMENT MC SCH (20:00)
[2019-07-24 22:00] VITALS: BP 142/72
[2019-07-25] VITALS (19 sets, daily range): BP systolic 90–136; BP diastolic 69–108
[2019-07-25] MEDS: clindamycin-Cleocin 900mg/D5W 50 ML IV SCH ×4 (00:18→23:32)
[2019-07-25] MEDS: piperacillin/tazo 3.375gm/50ml 50 ML IV SCH ×4 (00:18→23:30)
[2019-07-25] MEDS: normal saline 1000ml 1,000 ML IV SCH ×2 (00:21→19:12)
[2019-07-25] MEDS: morphine 2 MG/ML inj. syringe IV PRN ×4 (02:30→23:27)
[2019-07-25] MEDS: heparin, porcine 5000 units/ml vial SQ SCH ×2 (08:00→19:03)
[2019-07-25] MEDS: K and/or MAG REPLACEMENT MC SCH ×2 (08:00→19:13)
[2019-07-25 08:53] LABS: BASOPHILS # (AUTO) 0.1 X10'3 (0-0.2); BASOPHILS % (AUTO) 0.4 % (0-1); EOSINOPHILS # (AUTO) 0.3 X10'3 (0-0.9); EOSINOPHILS % (AUTO) 1.6 % (0-6); HEMATOCRIT 32.4 % (42.0-52.0); LYMPHOCYTES % (AUTO) 11.8 % (21-51); MEAN CORPUSCULAR HEMOGLOBIN 30.5 PG (27.0-31.0); MEAN CORPUSCULAR HGB CONC 33.9 g/dL (33.0-36.5); MEAN CORPUSCULAR VOLUME 90.1 FL (78-98); MEAN PLATELET VOLUME 7.7 FL (7.4-10.4); MONOCYTES # (AUTO) 1.8 X10'3 (0-0.9); MONOCYTES % (AUTO) 10.4 % (2-12); NEUTROPHILS # (AUTO) 13.1 X10'3 (1.8-7.7); NEUTROPHILS % (AUTO) 75.8 % (42-75); PLATELET COUNT 400 X10'3 (140-440); RED BLOOD COUNT 3.59 X10'6 (4.70-6.10); RED CELL DISTRIBUTION WIDTH 13.2 % (11.5-14.5); WHITE BLOOD COUNT 17.3 X10'3 (4.5-11.0)
[2019-07-25 09:07] LABS: ALANINE AMINOTRANSFERASE 35 U/L (12-78); ALBUMIN 1.7 G/DL (3.4-5.0); ALBUMIN/GLOBULIN RATIO 0.5 (1.1-1.5); ALKALINE PHOSPHATASE 100 IU/L (46-116); ANION GAP 12 (8-16); ASPARTATE AMINO TRANSFERASE 60 U/L (10-37); BILIRUBIN,TOTAL 0.4 MG/DL (0.1-1.0); BLOOD UREA NITROGEN 58 MG/DL (7-18); BUN/CREATININE RATIO 11.7 (5.4-32.0); CALCIUM 7.5 MG/DL (8.5-10.1); CHLORIDE 101 MMOL/L (99-107); CREATININE 4.96 MG/DL (0.60-1.10); GLUCOSE 101 MG/DL (70-104); POTASSIUM 4.1 MMOL/L (3.5-5.1); SODIUM 132 MMOL/L (135-145); TOTAL CARBON DIOXIDE 19.4 MMOL/L (24-32); TOTAL PROTEIN 4.9 G/DL (6.4-8.2); eGFR 13 ML/MIN
[2019-07-25 10:18] LABS: PLATELET ESTIMATE NORMAL; TOTAL CELLS COUNTED 100
[2019-07-25] MEDS: HYDROcodone/acetaminophen 10/325mg tab PO PRN (12:09)
[2019-07-25] MEDS ORDERED: ringers solution, lacted 1,000 ML IV SCH (13:11)
[2019-07-25] MEDS ORDERED: morphine 2 MG/ML inj. syringe IV PRN (13:15)
[2019-07-25] MEDS ORDERED: meperidine/PF 25mg/ml syringe IV PRN ×2 (13:15)
[2019-07-25] MEDS ORDERED: ondansetron/PF 4mg/2ml inj IV PRN (13:15)
[2019-07-25] MEDS ORDERED: proCHLORperazine 10 MG/2 ml inj IV PRN (13:15)
[2019-07-25] MEDS ORDERED: morphine 4 MG/ML inj SYRINge IV PRN (13:15)
--- NOTE | 2019-07-25 13:24 | NUR ---
To OR via bed
[2019-07-25] MEDS ORDERED: sevoflurane 250ml liquid IH ONE (13:42)
[2019-07-25] MEDS ORDERED: fentaNYL/PF 50MCG/1 ML 2ML syringe ONE (13:46)
[2019-07-25] MEDS ORDERED: midazolam 2 mg/2 ml injection ONE (13:46)
[2019-07-25] MEDS ORDERED: LIDOcaine 2% (20mg/ml) 5ml vial ONE (13:47)
[2019-07-25] MEDS ORDERED: propofol inj 20 ML IV ONE (13:47)
--- NOTE | 2019-07-25 14:50 | NUR ---
Received from OR via BED, accompanied by Anesthesiologist --TRIP- and report given by Anesthesiolgist. PATIENT A&OX4, DENIES PAIN, V/S WNL, NEUROVASCULAR CHECKS INTACT, PICC ULE, SCD ON, DRESSING TO RIGHT ARM STUMP CDI
[2019-07-25] MEDS: meperidine/PF 25mg/ml syringe IV PRN ×2 (15:05→15:47)
--- NOTE | 2019-07-25 15:50 | NUR ---
PATIENT A&OX4, DENIES PAIN, V/S WNL, NEUROVASCULAR CHECKS INTACT, PICC ULE, SCD ON, DRESSING TO RIGHT ARM STUMP CDI .PATIENT TAKEN TO 4012B WITH ALL BELONGINGS AND HOOKED UP TO MONITORS IN ROOM AND REPORT GIVEN TO RN WHO HAS TAKEN OVER PATIENT CARE.
[2019-07-25] MEDS ORDERED: furosemide 40mg/4ml inj IV ONE (16:20)
--- NOTE | 2019-07-25 18:37 | NUR ---
Student documentation: I have reviewed and agree with all interventions, assessments performed and documented by Primo ODOM.
[2019-07-26 02:00] VITALS: BP 175/76
[2019-07-26] MEDS: HYDROcodone/acetaminophen 10/325mg tab PO PRN ×3 (02:19→13:35)
[2019-07-26] MEDS: morphine 2 MG/ML inj. syringe IV PRN ×3 (05:14→23:17)
[2019-07-26 06:30] VITALS: BP 105/68
--- NOTE | 2019-07-26 06:43 | NUR ---
REPORT GIVEN TO HERI ESCALANTE.
--- NOTE | 2019-07-26 06:51 | NUR ---
Patient in room ORTHO 4012B. I have received report from Silvia LIRIANO and had the opportunity to ask questions and assume patient care.
[2019-07-26 07:21] LABS: ALBUMIN 1.6 G/DL (3.4-5.0); ANION GAP 11 (8-16); BLOOD UREA NITROGEN 51 MG/DL (7-18); BUN/CREATININE RATIO 11.2 (5.4-32.0); CALCIUM 7.1 MG/DL (8.5-10.1); CHLORIDE 103 MMOL/L (99-107); CREATININE 4.55 MG/DL (0.60-1.10); GLUCOSE 113 MG/DL (70-104); MAGNESIUM 2.4 MG/DL (1.5-2.4); PHOSPHORUS 6.1 MG/DL (2.3-4.5); POTASSIUM 3.7 MMOL/L (3.5-5.1); SODIUM 134 MMOL/L (135-145); TOTAL CARBON DIOXIDE 19.6 MMOL/L (24-32); eGFR 14 ML/MIN
[2019-07-26 07:27] LABS: BASOPHILS # (AUTO) 0.1 X10'3 (0-0.2); BASOPHILS % (AUTO) 0.5 % (0-1); EOSINOPHILS # (AUTO) 0.2 X10'3 (0-0.9); EOSINOPHILS % (AUTO) 1.9 % (0-6); HEMATOCRIT 26.5 % (42.0-52.0); LYMPHOCYTES # (AUTO) 1.8 X10'3 (1.1-4.8); LYMPHOCYTES % (AUTO) 14.2 % (21-51); MEAN CORPUSCULAR HEMOGLOBIN 30.6 PG (27.0-31.0); MEAN CORPUSCULAR HGB CONC 33.8 g/dL (33.0-36.5); MEAN CORPUSCULAR VOLUME 90.5 FL (78-98); MEAN PLATELET VOLUME 7.7 FL (7.4-10.4); MONOCYTES # (AUTO) 1.4 X10'3 (0-0.9); MONOCYTES % (AUTO) 11.1 % (2-12); NEUTROPHILS # (AUTO) 9.1 X10'3 (1.8-7.7); NEUTROPHILS % (AUTO) 72.3 % (42-75); PLATELET COUNT 384 X10'3 (140-440); RED BLOOD COUNT 2.93 X10'6 (4.70-6.10); RED CELL DISTRIBUTION WIDTH 13.4 % (11.5-14.5); WHITE BLOOD COUNT 12.6 X10'3 (4.5-11.0)
[2019-07-26] MEDS: heparin, porcine 5000 units/ml vial SQ SCH ×2 (07:40→22:42)
[2019-07-26] MEDS: clindamycin-Cleocin 900mg/D5W 50 ML IV SCH ×3 (07:42→23:17)
[2019-07-26] MEDS: K and/or MAG REPLACEMENT MC SCH ×2 (08:00→20:00)
--- NOTE | 2019-07-26 08:06 | NUR ---
Problems reprioritized. Patient report given, questions answered & plan of care reviewed with Eleni LIRIANO.
--- NOTE | 2019-07-26 08:10 | NUR ---
Patient in room ORTHO 4012. I have received report from Seble LIRIANO and had the opportunity to ask questions and assume patient care.
[2019-07-26] MEDS: normal saline 1000ml 1,000 ML IV SCH ×2 (08:59→22:53)
[2019-07-26] MEDS: piperacillin/tazo 3.375gm/50ml 50 ML IV SCH ×3 (08:59→23:17)
[2019-07-26 10:00] VITALS: BP 139/79
--- NOTE | 2019-07-26 13:29 | NUR ---
Reassessment: Pt Po improving 75-100% past 2 days up from fluctuating 25-50% initially post-op. Ensure pudding at lunches though none in stock at this time and Ziyad ONS recommendation cancelled by VIDEO LIBRARY ASSISTANT. RD recommended Ziyad shake BIDBD given extensive wound healing needs s/p R shoulder disarticulation; MD notified once more. Chopped all meals given single arm for meals post-op. LBM 6/2. MANUEL improving no need for HD w/ electrolytes and creatinine steadily improving per MD. RD d/w RN regarding MVI/mineral for woud healing needs post-op if MD agreeable. Will continue to monitor for additional wound healing needs. Rec: 1. continue regular diet/all chopped; encourage PO 2. Ziyad shake BIDBD; ensure pudding at lunches for wounds 3. MVI/mineral for wound healing needs 4. routine bowel care; consider opioid antagonist on opiates post-op if MD agreeable 5. wt per rx Addendum: 07/26/19 at [address] Amended: Links added.
[2019-07-26 18:00] VITALS: BP 153/91
[2019-07-26] MEDS: JUVEN Shake w/Arg/Glut/Ca2+Bmb (Juven 19.3gm) pkt 240ml PO SCH (18:03)
--- NOTE | 2019-07-26 18:15 | NUR ---
Patient in room ORTHO 4012. I have received report from Eleni LIRIANO and had the opportunity to ask questions and assume patient care.
--- NOTE | 2019-07-26 18:22 | NUR ---
Problems reprioritized. Patient report given, questions answered & plan of care reviewed with Justin.
--- NOTE | 2019-07-26 18:42 | NUR ---
Problems reprioritized. Patient report given, questions answered & plan of care reviewed with Justin LIRIANO.
[2019-07-26 22:00] VITALS: BP 168/94
[2019-07-27] MEDS: HYDROcodone/acetaminophen 10/325mg tab PO PRN ×5 (03:40→19:47)
[2019-07-27] MEDS: morphine 2 MG/ML inj. syringe IV PRN (04:47)
--- NOTE | 2019-07-27 06:09 | NUR ---
Problems reprioritized. Patient report given, questions answered & plan of care reviewed with Eleni LIRIANO.
[2019-07-27 06:10] VITALS: BP 174/114
--- NOTE | 2019-07-27 06:27 | NUR ---
Patient in room ORTHO 4012. I have received report from Justin LIRIANO and had the opportunity to ask questions and assume patient care. Addendum: 07/27/19 at 1449 by Lana Pinzon RN Problems reprioritized. Patient report given, questions answered & plan of care reviewed with Codie LIRIANO.
[2019-07-27 06:29] LABS: BASOPHILS # (AUTO) 0.1 X10'3 (0-0.2); BASOPHILS % (AUTO) 0.6 % (0-1); EOSINOPHILS # (AUTO) 0.3 X10'3 (0-0.9); EOSINOPHILS % (AUTO) 2.8 % (0-6); HEMATOCRIT 25.7 % (42.0-52.0); HEMOGLOBIN 8.7 g/dl (14.0-17.9); LYMPHOCYTES # (AUTO) 1.4 X10'3 (1.1-4.8); MEAN CORPUSCULAR HEMOGLOBIN 30.5 PG (27.0-31.0); MEAN CORPUSCULAR HGB CONC 33.8 g/dL (33.0-36.5); MEAN CORPUSCULAR VOLUME 90.2 FL (78-98); MEAN PLATELET VOLUME 7.4 FL (7.4-10.4); MONOCYTES # (AUTO) 1.2 X10'3 (0-0.9); MONOCYTES % (AUTO) 11.6 % (2-12); NEUTROPHILS # (AUTO) 7.7 X10'3 (1.8-7.7); PLATELET COUNT 372 X10'3 (140-440); RED BLOOD COUNT 2.85 X10'6 (4.70-6.10); RED CELL DISTRIBUTION WIDTH 13.6 % (11.5-14.5); WHITE BLOOD COUNT 10.8 X10'3 (4.5-11.0)
[2019-07-27 06:32] LABS: ALBUMIN 1.8 G/DL (3.4-5.0); ANION GAP 10 (8-16); BLOOD UREA NITROGEN 47 MG/DL (7-18); BUN/CREATININE RATIO 10.8 (5.4-32.0); CALCIUM 7.6 MG/DL (8.5-10.1); CHLORIDE 105 MMOL/L (99-107); CREATININE 4.35 MG/DL (0.60-1.10); GLUCOSE 93 MG/DL (70-104); MAGNESIUM 2.3 MG/DL (1.5-2.4); PHOSPHORUS 4.8 MG/DL (2.3-4.5); POTASSIUM 3.7 MMOL/L (3.5-5.1); SODIUM 136 MMOL/L (135-145); TOTAL CARBON DIOXIDE 21.2 MMOL/L (24-32); eGFR 15 ML/MIN
[2019-07-27] MEDS: clindamycin-Cleocin 900mg/D5W 50 ML IV SCH ×3 (07:07→23:56)
[2019-07-27] MEDS: piperacillin/tazo 3.375gm/50ml 50 ML IV SCH ×3 (07:08→23:49)
[2019-07-27] MEDS: heparin, porcine 5000 units/ml vial SQ SCH ×2 (07:08→19:51)
[2019-07-27 07:48] LABS: PLATELET ESTIMATE NORMAL; TOTAL CELLS COUNTED 100
[2019-07-27] MEDS: K and/or MAG REPLACEMENT MC SCH ×2 (08:00→20:00)
[2019-07-27] MEDS: JUVEN Shake w/Arg/Glut/Ca2+Bmb (Juven 19.3gm) pkt 240ml PO SCH ×2 (08:27→11:39)
[2019-07-27 10:00] VITALS: BP 137/90
[2019-07-27] MEDS ORDERED: ipratropium/albuterol 3ml nebule NEB PRN ×2 (11:30→12:30)
[2019-07-27] MEDS: normal saline 1000ml 1,000 ML IV SCH (11:35)
--- NOTE | 2019-07-27 18:13 | NUR ---
Problems reprioritized. Patient report given, questions answered & plan of care reviewed with Justin.
--- NOTE | 2019-07-27 18:15 | NUR ---
Patient in room ORTHO 4012. I have received report from Codie LIRIANO and had the opportunity to ask questions and assume patient care.
[2019-07-27 18:49] VITALS: BP 159/95
[2019-07-27 22:00] VITALS: BP 165/85
[2019-07-28] MEDS: normal saline 1000ml 1,000 ML IV SCH (00:31)
[2019-07-28] MEDS: HYDROcodone/acetaminophen 10/325mg tab PO PRN ×5 (00:31→23:36)
[2019-07-28 06:00] VITALS: BP 162/90
[2019-07-28 06:18] LABS: BASOPHILS # (AUTO) 0.1 X10'3 (0-0.2); BASOPHILS % (AUTO) 0.5 % (0-1); EOSINOPHILS # (AUTO) 0.3 X10'3 (0-0.9); EOSINOPHILS % (AUTO) 2.9 % (0-6); HEMATOCRIT 24.4 % (42.0-52.0); HEMOGLOBIN 8.3 g/dl (14.0-17.9); LYMPHOCYTES # (AUTO) 1.4 X10'3 (1.1-4.8); LYMPHOCYTES % (AUTO) 13.5 % (21-51); MEAN CORPUSCULAR HEMOGLOBIN 30.7 PG (27.0-31.0); MEAN CORPUSCULAR VOLUME 90.4 FL (78-98); MEAN PLATELET VOLUME 7.2 FL (7.4-10.4); MONOCYTES # (AUTO) 1.1 X10'3 (0-0.9); MONOCYTES % (AUTO) 10.4 % (2-12); NEUTROPHILS # (AUTO) 7.8 X10'3 (1.8-7.7); NEUTROPHILS % (AUTO) 72.7 % (42-75); PLATELET COUNT 381 X10'3 (140-440); RED CELL DISTRIBUTION WIDTH 13.3 % (11.5-14.5); WHITE BLOOD COUNT 10.7 X10'3 (4.5-11.0)
[2019-07-28 06:21] LABS: ALBUMIN 1.9 G/DL (3.4-5.0); ANION GAP 11 (8-16); BLOOD UREA NITROGEN 41 MG/DL (7-18); CALCIUM 7.8 MG/DL (8.5-10.1); CHLORIDE 106 MMOL/L (99-107); CREATININE 4.09 MG/DL (0.60-1.10); GLUCOSE 100 MG/DL (70-104); MAGNESIUM 2.2 MG/DL (1.5-2.4); PHOSPHORUS 4.6 MG/DL (2.3-4.5); POTASSIUM 3.7 MMOL/L (3.5-5.1); SODIUM 138 MMOL/L (135-145); TOTAL CARBON DIOXIDE 21.5 MMOL/L (24-32); eGFR 16 ML/MIN
--- NOTE | 2019-07-28 06:33 | NUR ---
Problems reprioritized. Patient report given, questions answered & plan of care reviewed with Orin Hanna RN .
[2019-07-28 07:15] LABS: TOTAL CELLS COUNTED 100
[2019-07-28 07:16] LABS: PLATELET ESTIMATE NORMAL; POLYCHROMASIA 1+; TOXIC GRANULATION 1+
[2019-07-28] MEDS: JUVEN Shake w/Arg/Glut/Ca2+Bmb (Juven 19.3gm) pkt 240ml PO SCH ×3 (07:30→18:28)
[2019-07-28] MEDS: K and/or MAG REPLACEMENT MC SCH ×2 (08:45→18:42)
--- NOTE | 2019-07-28 08:47 | NUR ---
PAGER ID: [phone] MESSAGE: [id number] Dipak South Patient morphine fell off yesterday, would you like to restart it? [phone] [id number]
--- NOTE | 2019-07-28 08:51 | NUR ---
Orders received from Dr. Proctor. Dr. Mane in to see patient, and will continue Cleocin over the weekend.
[2019-07-28] MEDS ORDERED: morphine 2 MG/ML inj. syringe IV PRN (08:55)
[2019-07-28] MEDS: morphine 2 MG/ML inj. syringe IV PRN (09:34)
[2019-07-28] MEDS: clindamycin-Cleocin 900mg/D5W 50 ML IV SCH ×3 (09:38→23:44)
[2019-07-28] MEDS: heparin, porcine 5000 units/ml vial SQ SCH ×2 (09:38→19:12)
[2019-07-28 10:00] VITALS: BP 171/102
[2019-07-28] MEDS ORDERED: furosemide 40mg/4ml inj IV ONE ×2 (10:30→16:00)
--- NOTE | 2019-07-28 10:30 | NUR ---
Call Dr. Gambino received orders for Lasix, and stop fluids. He will be into see patient.
--- NOTE | 2019-07-28 18:25 | NUR ---
Problems reprioritized. Patient report given, questions answered & plan of care reviewed with Tiffanie LIRIANO.
[2019-07-28 18:50] VITALS: BP 167/91
[2019-07-28 22:00] VITALS: BP 167/67
[2019-07-29] MEDS: HYDROcodone/acetaminophen 10/325mg tab PO PRN ×3 (04:56→22:11)
[2019-07-29 06:00] VITALS: BP 178/97
--- NOTE | 2019-07-29 06:19 | NUR ---
Problems reprioritized. Patient report given, questions answered & plan of care reviewed with HERI Gandara.
[2019-07-29 06:21] LABS: BASOPHILS # (AUTO) 0.1 X10'3 (0-0.2); BASOPHILS % (AUTO) 0.8 % (0-1); EOSINOPHILS # (AUTO) 0.3 X10'3 (0-0.9); EOSINOPHILS % (AUTO) 2.7 % (0-6); LYMPHOCYTES # (AUTO) 1.6 X10'3 (1.1-4.8); LYMPHOCYTES % (AUTO) 13.5 % (21-51); MEAN CORPUSCULAR HEMOGLOBIN 30.6 PG (27.0-31.0); MEAN CORPUSCULAR HGB CONC 33.5 g/dL (33.0-36.5); MEAN CORPUSCULAR VOLUME 91.2 FL (78-98); MEAN PLATELET VOLUME 7.6 FL (7.4-10.4); MONOCYTES # (AUTO) 1.1 X10'3 (0-0.9); MONOCYTES % (AUTO) 9.6 % (2-12); NEUTROPHILS # (AUTO) 8.6 X10'3 (1.8-7.7); NEUTROPHILS % (AUTO) 73.4 % (42-75); PLATELET COUNT 405 X10'3 (140-440); RED BLOOD COUNT 2.63 X10'6 (4.70-6.10); WHITE BLOOD COUNT 11.7 X10'3 (4.5-11.0)
--- NOTE | 2019-07-29 06:36 | NUR ---
Patient in room ORTHO 4012B. I have received report from HERI Moreno and had the opportunity to ask questions and assume patient care.
[2019-07-29 06:46] LABS: ALBUMIN 2.2 G/DL (3.4-5.0); ANION GAP 11 (8-16); BLOOD UREA NITROGEN 38 MG/DL (7-18); BUN/CREATININE RATIO 9.7 (5.4-32.0); CALCIUM 8.2 MG/DL (8.5-10.1); CHLORIDE 105 MMOL/L (99-107); GLUCOSE 92 MG/DL (70-104); MAGNESIUM 2.1 MG/DL (1.5-2.4); PHOSPHORUS 4.5 MG/DL (2.3-4.5); POTASSIUM 3.8 MMOL/L (3.5-5.1); SODIUM 139 MMOL/L (135-145); TOTAL CARBON DIOXIDE 22.7 MMOL/L (24-32); eGFR 17 ML/MIN
[2019-07-29] MEDS: clindamycin-Cleocin 900mg/D5W 50 ML IV SCH ×2 (07:14→16:37)
[2019-07-29 07:19] LABS: PLATELET ESTIMATE NORMAL; POLYCHROMASIA FEW; TOTAL CELLS COUNTED 100
[2019-07-29] MEDS: heparin, porcine 5000 units/ml vial SQ SCH ×2 (07:21→19:03)
[2019-07-29] MEDS: K and/or MAG REPLACEMENT MC SCH ×2 (07:21→19:19)
[2019-07-29] MEDS: JUVEN Shake w/Arg/Glut/Ca2+Bmb (Juven 19.3gm) pkt 240ml PO SCH ×2 (07:30→17:48)
[2019-07-29] MEDS ORDERED: LACTOBACILLUS RHAMNOSUS GG 15 billion unit sprinkle caps PO SCH (07:30)
[2019-07-29] MEDS: morphine 2 MG/ML inj. syringe IV PRN ×3 (08:39→19:03)
--- NOTE | 2019-07-29 09:00 | NUR ---
Patient in room PCU 3025. I have received report from Harriett LIRIANO and had the opportunity to ask questions and assume patient care.
--- NOTE | 2019-07-29 10:20 | NUR ---
PATIENT TRANSFERRED TO PCU WITH ALL BELONGINGS IN POSSESSION. FAMILY AND HOSPITALIST NOTIFIED. REPORT GIVEN TO HENRY LIRIANO.
--- NOTE | 2019-07-29 10:30 | NUR ---
Patient transferred from Ortho/Neuro, oriented to unit, 2 rn skin check, VS 96.9, HR 97, 100% RA, RR 18, pain 7/10 phantom.Patients belongings are in closet, patient is resting comfortably.
--- NOTE | 2019-07-29 10:32 | NUR ---
PAGER ID: [phone] MESSAGE: [phone] RE: [phone] [id number] FYI THIS PT IS NOW IN 6837G.
[2019-07-29 11:00] VITALS: BP_SYST 116; BP_SYST 146; BP_DIAS 80; BP_DIAS 81
--- NOTE | 2019-07-29 13:06 | NUR ---
Reassessment: Pt has significant anasarca now with significant scrotal swelling per MD notes. Pt with scrotal/sacral 4+ severe edema and bilat foot 3+ moderate edema per physical assessment. Patient's PO intake continues to fluctuate, down to 50-75% PO intake, however back up to 75-100% PO intake x 4 most recent meals. Pt not receiving Ziyad ONS at this time d/t currently being out of stock however order remains active and will be sent once available given pt with increased protein needs secondary to wound healing. LB 07/28. Will continue to follow closely and monitor need for further nutrition intervention. Rec: 1. continue regular diet/all chopped; encourage PO 2. Ziyad shake BIDBD, currently out of stock however to resume once available; ensure pudding at lunches for wounds 3. MVM for wound healing needs 4. routine bowel care; consider opioid antagonist on opiates post-op if MD agreeable 5. wt per rx Addendum: 07/29/19 at [address] Amended: Links added.
[2019-07-29 15:00] VITALS: BP 144/87
[2019-07-29 18:00] VITALS: BP 172/90
--- NOTE | 2019-07-29 18:20 | NUR ---
Patient in room PCU 3025. I have received report from Barrera LIRIANO and had the opportunity to ask questions and assume patient care.
--- NOTE | 2019-07-29 18:24 | NUR ---
Problems reprioritized. Patient report given, questions answered & plan of care reviewed with Kandis LIRIANO.
[2019-07-29 22:00] VITALS: BP 136/80
[2019-07-30] MEDS: clindamycin-Cleocin 900mg/D5W 50 ML IV SCH ×4 (00:22→23:09)
[2019-07-30] MEDS: morphine 2 MG/ML inj. syringe IV PRN (02:32)
[2019-07-30] MEDS: HYDROcodone/acetaminophen 10/325mg tab PO PRN ×3 (05:18→19:12)
[2019-07-30 05:20] LABS: BASOPHILS # (AUTO) 0.1 X10'3 (0-0.2); BASOPHILS % (AUTO) 0.9 % (0-1); EOSINOPHILS # (AUTO) 0.4 X10'3 (0-0.9); EOSINOPHILS % (AUTO) 3.4 % (0-6); HEMATOCRIT 22.5 % (42.0-52.0); HEMOGLOBIN 7.8 g/dl (14.0-17.9); LYMPHOCYTES # (AUTO) 1.5 X10'3 (1.1-4.8); LYMPHOCYTES % (AUTO) 14.7 % (21-51); MEAN CORPUSCULAR HEMOGLOBIN 31.7 PG (27.0-31.0); MEAN CORPUSCULAR HGB CONC 34.7 g/dL (33.0-36.5); MEAN CORPUSCULAR VOLUME 91.3 FL (78-98); MEAN PLATELET VOLUME 7.6 FL (7.4-10.4); MONOCYTES # (AUTO) 1.1 X10'3 (0-0.9); MONOCYTES % (AUTO) 10.4 % (2-12); NEUTROPHILS # (AUTO) 7.4 X10'3 (1.8-7.7); NEUTROPHILS % (AUTO) 70.6 % (42-75); PLATELET COUNT 398 X10'3 (140-440); RED BLOOD COUNT 2.46 X10'6 (4.70-6.10); RED CELL DISTRIBUTION WIDTH 13.8 % (11.5-14.5); WHITE BLOOD COUNT 10.4 X10'3 (4.5-11.0)
[2019-07-30 05:25] LABS: ALBUMIN 2.1 G/DL (3.4-5.0); ANION GAP 9 (8-16); BLOOD UREA NITROGEN 36 MG/DL (7-18); BUN/CREATININE RATIO 10.1 (5.4-32.0); CALCIUM 8.5 MG/DL (8.5-10.1); CHLORIDE 109 MMOL/L (99-107); CREATININE 3.55 MG/DL (0.60-1.10); GLUCOSE 96 MG/DL (70-104); PHOSPHORUS 4.7 MG/DL (2.3-4.5); SODIUM 142 MMOL/L (135-145); TOTAL CARBON DIOXIDE 24.5 MMOL/L (24-32); eGFR 19 ML/MIN
--- NOTE | 2019-07-30 06:31 | NUR ---
Problems reprioritized. Patient report given, questions answered & plan of care reviewed with Anabell LIRIANO.
--- NOTE | 2019-07-30 06:35 | NUR ---
Received report from Kandis LIRIANO
[2019-07-30 07:07] VITALS: BP 159/88
[2019-07-30] MEDS: heparin, porcine 5000 units/ml vial SQ SCH ×2 (07:51→19:11)
[2019-07-30] MEDS: JUVEN Shake w/Arg/Glut/Ca2+Bmb (Juven 19.3gm) pkt 240ml PO SCH ×2 (07:56→11:17)
[2019-07-30] MEDS: K and/or MAG REPLACEMENT MC SCH ×2 (08:00→19:20)
[2019-07-30 14:57] LABS: D-DIMER 14.09 MG/L FEU (0-0.50)
[2019-07-30 15:21] LABS: OCCULT BLOOD STOOL NEGATIVE (Neg)
[2019-07-30 17:01] VITALS: BP 163/86
[2019-07-30 18:00] VITALS: BP 179/94
[2019-07-30 22:00] VITALS: BP 150/88
[2019-07-31 02:00] VITALS: BP 164/90
[2019-07-31] MEDS: HYDROcodone/acetaminophen 10/325mg tab PO PRN ×2 (03:14→13:53)
[2019-07-31 05:28] LABS: BASOPHILS # (AUTO) 0.1 X10'3 (0-0.2); BASOPHILS % (AUTO) 0.8 % (0-1); EOSINOPHILS # (AUTO) 0.3 X10'3 (0-0.9); EOSINOPHILS % (AUTO) 2.7 % (0-6); HEMATOCRIT 22.5 % (42.0-52.0); HEMOGLOBIN 7.6 g/dl (14.0-17.9); LYMPHOCYTES # (AUTO) 1.3 X10'3 (1.1-4.8); LYMPHOCYTES % (AUTO) 14.2 % (21-51); MEAN CORPUSCULAR HEMOGLOBIN 30.5 PG (27.0-31.0); MEAN CORPUSCULAR HGB CONC 33.6 g/dL (33.0-36.5); MEAN CORPUSCULAR VOLUME 90.8 FL (78-98); MEAN PLATELET VOLUME 7.7 FL (7.4-10.4); MONOCYTES # (AUTO) 0.8 X10'3 (0-0.9); MONOCYTES % (AUTO) 9.1 % (2-12); NEUTROPHILS # (AUTO) 6.8 X10'3 (1.8-7.7); NEUTROPHILS % (AUTO) 73.2 % (42-75); PLATELET COUNT 421 X10'3 (140-440); RED BLOOD COUNT 2.48 X10'6 (4.70-6.10); RED CELL DISTRIBUTION WIDTH 13.8 % (11.5-14.5); WHITE BLOOD COUNT 9.3 X10'3 (4.5-11.0)
[2019-07-31 05:47] LABS: ALBUMIN 2.3 G/DL (3.4-5.0); ANION GAP 9 (8-16); BLOOD UREA NITROGEN 31 MG/DL (7-18); BUN/CREATININE RATIO 9.8 (5.4-32.0); CALCIUM 8.4 MG/DL (8.5-10.1); CHLORIDE 109 MMOL/L (99-107); CREATININE 3.16 MG/DL (0.60-1.10); GLUCOSE 116 MG/DL (70-104); MAGNESIUM 1.9 MG/DL (1.5-2.4); PHOSPHORUS 4.2 MG/DL (2.3-4.5); POTASSIUM 3.9 MMOL/L (3.5-5.1); SODIUM 142 MMOL/L (135-145); TOTAL CARBON DIOXIDE 24.5 MMOL/L (24-32); eGFR 22 ML/MIN
[2019-07-31 06:00] VITALS: BP 161/81
--- NOTE | 2019-07-31 06:18 | NUR ---
Problems reprioritized. Patient report given, questions answered & plan of care reviewed with HERI GRIMALDO.
--- NOTE | 2019-07-31 06:30 | NUR ---
received report dominik childs
[2019-07-31] MEDS: JUVEN Shake w/Arg/Glut/Ca2+Bmb (Juven 19.3gm) pkt 240ml PO SCH (07:46)
[2019-07-31] MEDS: K and/or MAG REPLACEMENT MC SCH (07:47)
[2019-07-31] MEDS: clindamycin-Cleocin 900mg/D5W 50 ML IV SCH (07:50)
[2019-07-31] MEDS: heparin, porcine 5000 units/ml vial SQ SCH (07:50)
--- NOTE | 2019-07-31 09:43 | NUR ---
left a message on dr. hussain martin cell phone on behalf of dr. artie martin in regards to pt dressing change, no new orders at this time, continue to monitor, dressing currently cdi
[2019-07-31 11:00] VITALS: BP 144/63
[2019-07-31] MEDS ORDERED: CLIN-97 PO (12:32)
--- NOTE | 2019-07-31 14:22 | NUR ---
wound care changed pt dressing today and placed supplies at bedside, dressing cdi, continue to monitor
--- NOTE | 2019-07-31 15:10 | NUR ---
pt d/c with instructions understanding of instructions and with all belongings in wheelchair accompanied by nursing staff to private vehicle to f/u with PCP
[2019-07-31] MEDS ORDERED: IBUP-1986 PO (22:22)
[2019-07-31] MEDS ORDERED: HYDR-4353 PO (22:22)
== END 2019-07-31 17:50 | disposition home or self-care (01) | DRG 710 ==
LOC: ER 10:44 → ED HOLD 15:17 → ORTHO 4S 17:56 → ICU 2S 07-21 12:00 → ORTHO 4S 07-23 23:55 → PCU 3S 07-29 10:19
PROVIDERS: ADMIT Family Medicine; ATTEND Internal Medicine Critical Care Medicine
PROC: 0KB70ZZ Excision of Right Upper Arm Muscle, Open Approach (ICD-10-PCS; 2019-07-20)
PROC: 02HV33Z Insertion of Infusion Device into Superior Vena Cava, Percutaneous Approach (ICD-10-PCS; 2019-07-21)
PROC: 4A02X4A Measurement of Cardiac Electrical Activity, Guidance, External Approach (ICD-10-PCS; 2019-07-21)
PROC: 0X6 Anatomical Regions, Upper Extremities, Detachment (ICD-10-PCS; principal; 2019-07-21 15:56)
PROC: 2W0 Placement, Anatomical Regions, Change (ICD-10-PCS; 2019-07-25)
DX: A41.9 Sepsis, unspecified organism (principal); N17.0 Acute kidney failure with tubular necrosis; M72.6 Necrotizing fasciitis; I95.9 Hypotension, unspecified; D62 Acute posthemorrhagic anemia; E87.5 Hyperkalemia; E88.09 Other disorders of plasma-protein metabolism, not elsewhere classified; I77.1 Stricture of artery; F15.10 Other stimulant abuse, uncomplicated; F17.210 Nicotine dependence, cigarettes, uncomplicated; L02.413 Cutaneous abscess of right upper limb; L03.113 Cellulitis of right upper limb; N50.89 Other specified disorders of the male genital organs; R65.20 Severe sepsis without septic shock; Z71.51 Drug abuse counseling and surveillance of drug abuser
CPT/HCPCS: 36415; 36573; 71045; 73201; 76870; 76937; 80048; 80053; 80061; 80202; 81001; 82272; 82550; 82570; 82948; 83036; 83605; 83735; 84100; 84145; 84300; 85025; 85379; 85610; 85730; 86140; 86703; 86705; 86706; 86709; 86803; 87040; 87070; 87075; 87076; 87081; 87088; 87102; 87207; 87340; 90715; 93005; 93306; 93925; 93931; 93970; 93971; 94640; 94760; 96374; 97110; 97116; 97161; 97530; 99285; A4618; A6222; A6449; A6550; A7000; G0378; J0696; J1644; J1940; J2001; J2175; J2250; J2270; J2370; J2405; J2543; J2704; J2710; J2765; J3010; J3370; J3490; J7030; J7040; J7050; J7120; Q9967

== ENCOUNTER 2019-07-31 22:02 | Emergency (ER) | payer MEDICAID ==
[~2019-07-31] VITALS: Ht 188 cm; Wt 120.0 kg
[~2019-07-31 22:02] MED LIST: CLIN-97 PO; NO HOME MEDS
[2019-07-31 22:14] VITALS: BP 169/93
[2019-07-31] MEDS ORDERED: HYDROcodone/acetaminophen 10/325mg tab PO ONE ×2 (22:20→22:33)
[2019-07-31] MEDS ORDERED: ketorolac trometh inj. 60 MG/2 ML VIAL IM ONE ×2 (22:20→22:33)
[2019-07-31] MEDS ORDERED: HYDR-4353 PO (22:22)
[2019-07-31] MEDS ORDERED: IBUP-1986 PO (22:22)
== END 2019-07-31 22:47 | disposition home or self-care (01) ==
LOC: ER 22:02
DX: G89.18 Other acute postprocedural pain (principal); T87.9 Unspecified complications of amputation stump; F15.90 Other stimulant use, unspecified, uncomplicated; Z98.890 Other specified postprocedural states; Z88.1 Allergy status to other antibiotic agents; Z79.2 Long term (current) use of antibiotics; Z79.899 Other long term (current) drug therapy
CPT/HCPCS: 96372; 99283; J1885

== ENCOUNTER 2019-08-07 14:10 | Emergency (ER) | payer MEDICAID ==
[~2019-08-07] VITALS: Ht 182.9 cm; Wt 109.0 kg
[~2019-08-07 14:10] MED LIST changes: +HYDR-4353 PO; +IBUP-1986 PO
[2019-08-07 14:36] VITALS: BP 158/105
== END 2019-08-07 16:32 | disposition home or self-care (01) ==
LOC: ER 14:11
DX: Z48.01 Encounter for change or removal of surgical wound dressing (principal); F15.10 Other stimulant abuse, uncomplicated; Z98.890 Other specified postprocedural states; Z88.1 Allergy status to other antibiotic agents; Z79.899 Other long term (current) drug therapy
CPT/HCPCS: 99281

== ENCOUNTER 2024-04-06 11:10 | Emergency (ER) | payer MEDICAID, OTHER ==
[~2024-04-06] VITALS: Ht 182.9 cm; Wt 109.1 kg
[~2024-04-06 11:10] MED LIST changes: -HYDR-4353 PO
[2024-04-06 11:24] VITALS: BP 174/114; PULSE 100; RESP 16; TEMP 98; O2SAT 98
== END 2024-04-06 11:59 | disposition home or self-care (01) ==
LOC: ER 11:10
DX: Z02.89 Encounter for other administrative examinations (principal); I10 Essential (primary) hypertension; Z88.1 Allergy status to other antibiotic agents; Z88.6 Allergy status to analgesic agent
CPT/HCPCS: 99283